=== PATIENT | female | born 1950 | race Caucasian/White ===

== ENCOUNTER 2017-06-28 19:36 | Inpatient (IN) | payer MEDICARE, OTHER ==
[~2017-06-28] VITALS: Ht 167.6 cm; Wt 100.7 kg
[2017-06-28] MEDS ORDERED: TEMA15CA PO (19:56)
[2017-06-28] MEDS ORDERED: OMEP20TA5 PO (19:56)
--- NOTE | 2017-06-28 21:15 | NUR ---
TRANSFER TO [facility] VIA [facility] WITH NO DISTRESS NOTED
[2017-06-28 22:20] VITALS: BP 144/81
[2017-06-28] MEDS ORDERED: LORAZEPAM 0.5 MG TABLET PO PRN (22:30)
[2017-06-28] MEDS ORDERED: MAGNESIUM HYDROXIDE 30 ML LIQUID UDC PO PRN (22:30)
--- NOTE | 2017-06-28 22:50 | NUR ---
At approx 2115 admit 67 year old female on a 5150 hold r/t DTS. Hold started today at 1259 and will end on 07/01/17 at 1259. Per hold, patient has been taking care of with no support, she also found out that she owes the IRS 19,000.00. She feels that there is nothing left to live for. Per patient, she OD on 14 pills of Temazepam 15mg PO. called 911 and she was taken to [facility] ER. Patient noted A/O x4 and able to ambulate with steady gait. Patient was cooperative with admission. However she was noted depressed. She cried one time during admission process. She stated that she still feels suicidal, but denies having a plan. Odilia Hernandez, Sister, was informed of patient's admission to the unit. Dr. Garcia and Dr Ken were notify of admission. Head to toe assessment, a small bruise noted in right deltoid lateral aspect. per pt. she got a pneumococcal vaccine on 06/27/17. It was also noted a small bump in occipital aspect of head, however, skin is intact; this small bump is due to her falling backward and hitting the back of her head on the floor at home after she OD. Patient denies pain or discomfort at this time. we will continue to monitor.
[2017-06-29] MEDS: MAG HYDROX/AL HYDROX/SIMETH 30 ML LIQUID UDC PO PRN (06:32)
[2017-06-29] MEDS ORDERED: MAG HYDROX/AL HYDROX/SIMETH 30 ML LIQUID UDC ONE (06:43)
[2017-06-29 07:30] VITALS: BP 135/81
[2017-06-29] MEDS: ACETAMINOPHEN 325 MG TABLET PO PRN ×2 (08:23→14:35)
--- NOTE | 2017-06-29 08:25 | NUR ---
STATED HAVING HEADACHE MEDICATED WITH TYLENOL ORDERED AND PATIENT IS RESTING AT THIS TIME.
[2017-06-29 15:59] VITALS: BP 140/79
[2017-06-29] MEDS: ESCITALOPRAM OXALATE 10 MG TABLET PO SCH (17:42)
--- NOTE | 2017-06-29 17:59 | NUR ---
SITTING UP IN HER ROOM IN BED EATING HER DINNER PATIENT WAS ENCOURAGED TO PARTICIPATE IN THE DAY ROOM AND INTERACT WITH THE OTHER PATIENTS AND STATED OKAY BUT NOT NOW.
[2017-06-29 20:06] VITALS: BP 134/74
--- NOTE | 2017-06-29 22:00 | NUR ---
received to care, lying in bed, isolative, but pleasant upon approach. compliant with staff direction, and unit rules. declined PRN medications. as of 2199, she appears to be asleep. no distress noted. will continue to monitor closely.
[2017-06-30] MEDS: ACETAMINOPHEN 325 MG TABLET PO PRN ×2 (00:29→08:23)
[2017-06-30] MEDS: MAG HYDROX/AL HYDROX/SIMETH 30 ML LIQUID UDC PO PRN ×3 (00:29→21:01)
[2017-06-30] MEDS: PANTOPRAZOLE SODIUM 40 MG TABLET.DR PO SCH (06:29)
--- NOTE | 2017-06-30 06:30 | NUR ---
slept 8.5 hours, total.
[2017-06-30 07:31] VITALS: BP 127/69
[2017-06-30] MEDS: ESCITALOPRAM OXALATE 10 MG TABLET PO SCH (08:23)
--- NOTE | 2017-06-30 08:30 | NUR ---
Alert, oriented x 3, pleasant. Compliant with taking medication and able to eat beakfast. complains of headache, Tylenol po given.
--- NOTE | 2017-06-30 08:40 | NUR ---
Initial discharge instructions: Pt resides at home with her [[address],[place], [place],[address];[phone]].Per pt,she would like to return home upon discharge.REGINA called pt's sister,Pat [phone] but no answer at this time.REGINA will speak with pt,family,and MD regarding appropriate discharge.REGINA will form a safe and proper discharge.
--- NOTE | 2017-06-30 13:48 | NUR ---
Complaining of stomach upset after lunch. Mylanta po given.
[2017-06-30 16:00] VITALS: BP 137/80
--- NOTE | 2017-06-30 18:52 | NUR ---
Denies suicidal ideation. Calm and cooperative
[2017-06-30 20:17] VITALS: BP 146/80
[2017-06-30] MEDS: ZOLPIDEM 5 MG TABLET PO PRN (21:01)
--- NOTE | 2017-06-30 22:00 | NUR ---
received to care, lying in bed, isolative, but pleasant upon approach. remains isolative, but pleasant upon approach. at 2100, PRN ambien was given for insomnia, and PRN mylanta was given for GI upset. as of 2199, she appears to be asleep. no distress noted. will continue to monitor closely.
--- NOTE | 2017-07-01 06:00 | NUR ---
slept 8.0 hours, total.
[2017-07-01] MEDS: PANTOPRAZOLE SODIUM 40 MG TABLET.DR PO SCH (06:28)
[2017-07-01 07:30] VITALS: BP 158/80
[2017-07-01] MEDS: ESCITALOPRAM OXALATE 10 MG TABLET PO SCH (07:56)
[2017-07-01 15:00] VITALS: BP 114/83
[2017-07-01 19:39] VITALS: BP 162/86
[2017-07-01] MEDS: MAG HYDROX/AL HYDROX/SIMETH 30 ML LIQUID UDC PO PRN (20:32)
--- NOTE | 2017-07-01 22:00 | NUR ---
received to care, lying in bed, isolative, but pleasant upon approach. at bedtime, PRN mylanta was given for GI upset. as of 2200, she appears to be asleep. no distress noted. will continue to monitor closely.
[2017-07-02] MEDS: ACETAMINOPHEN 325 MG TABLET PO PRN ×3 (02:41→20:45)
--- NOTE | 2017-07-02 02:41 | NUR ---
PRN tylenol given for headache.
--- NOTE | 2017-07-02 03:10 | NUR ---
appears to be asleep.no dsitress noted.
--- NOTE | 2017-07-02 06:00 | NUR ---
slept 8.0 hours, total. continues to sleep. no distress noted. will continue to monitor closely.
[2017-07-02] MEDS: PANTOPRAZOLE SODIUM 40 MG TABLET.DR PO SCH (06:25)
[2017-07-02 07:30] VITALS: BP 135/77
[2017-07-02] MEDS: ESCITALOPRAM OXALATE 10 MG TABLET PO SCH (09:17)
--- NOTE | 2017-07-02 09:20 | NUR ---
PT IN ROOM, ISOLATIVE AND GUARDED, PT TOOK AM MED
--- NOTE | 2017-07-02 10:24 | NUR ---
GAVE TYLENOL 2 TABS, PT C/O PAIN, WILL MONITOR.
[2017-07-02 15:00] VITALS: BP 119/91
--- NOTE | 2017-07-02 17:56 | NUR ---
PT REMAINS IN ROOM ISOLATIVE AND GUARDED, NO DISTRESS.
[2017-07-02 20:32] VITALS: BP 137/52
[2017-07-02] MEDS: ZOLPIDEM 5 MG TABLET PO PRN (20:45)
[2017-07-03] MEDS: PANTOPRAZOLE SODIUM 40 MG TABLET.DR PO SCH (06:19)
[2017-07-03 07:30] VITALS: BP 143/73
[2017-07-03] MEDS: ESCITALOPRAM OXALATE 10 MG TABLET PO SCH (08:48)
[2017-07-03 15:21] VITALS: BP 136/77
[2017-07-03] MEDS: MAG HYDROX/AL HYDROX/SIMETH 30 ML LIQUID UDC PO PRN (16:57)
[2017-07-03 20:15] VITALS: BP 139/71
[2017-07-03] MEDS: ZOLPIDEM 5 MG TABLET PO PRN (21:07)
[2017-07-04] MEDS: PANTOPRAZOLE SODIUM 40 MG TABLET.DR PO SCH (06:37)
[2017-07-04 07:30] VITALS: BP 156/61
[2017-07-04] MEDS: ESCITALOPRAM OXALATE 10 MG TABLET PO SCH (08:31)
[2017-07-04] MEDS: ACETAMINOPHEN 325 MG TABLET PO PRN (08:36)
[2017-07-04 15:50] VITALS: BP 116/65
[2017-07-04 20:13] VITALS: BP 123/60
[2017-07-04] MEDS ORDERED: ESCITALOPRAM OXALATE 10 MG TABLET PO SCH (21:00)
--- NOTE | 2017-07-04 22:00 | NUR ---
received to care, lying in bed, isolative, but pleasant upon approach. interacts well with her room mate, and program staff. denies SI, or the desire to harm self. as of 0, she remains awake. no distress noted. will continue to monitor closely.
[2017-07-04] MEDS: ZOLPIDEM 5 MG TABLET PO PRN (22:29)
--- NOTE | 2017-07-04 22:29 | NUR ---
PRN ambien, given, for insomnia.
--- NOTE | 2017-07-04 23:00 | NUR ---
appears to be asleep. no distress noted.
--- NOTE | 2017-07-05 06:00 | NUR ---
slept 8.0 hours, total.
[2017-07-05] MEDS: PANTOPRAZOLE SODIUM 40 MG TABLET.DR PO SCH (06:30)
[2017-07-05 07:39] VITALS: BP 124/70
--- NOTE | 2017-07-05 11:36 | NUR ---
DC Note: Patient will be discharged back home [[address], [place], [address]; [phone]] via private transportation at 2:00 pm. Patient's sister, Any Hernandez will be picking her up. Any is aware and agreeable with discharge plans. Patient is aware and agreeable with discharge plans. Patient will follow-up with (Dragline Operator Helper) [[address], [place] [address]; ]. Patient was referred to Psychiatrists, , , and [phone]. Patient was provided with a brief substance abuse intervention and referred to [facility] , [facility] , and [facility] .
--- NOTE | 2017-07-05 14:00 | NUR ---
GPS: Nursing Notes: Discharge Notes: Patient is awake and responding to her name, A/Ox4, compliant with her medications, cooperative with nursing care, denies any SI/HI, denies any AH/VH, denies any pain or discomfort, denies any SOB, discharge home with her at [address] [place], [place] [id number] , instructions and prescription given to her sister Any Hernandez , transported home via private vehicle, accompanied by her sister, took all her belonging with her. Patient is aware and agreeable with discharge plans. Patient will follow-up with (Hospital Education Coordinator) [[address] [facility] [address], [place] [address]; ]. Patient was referred to Psychiatrists, , , and [phone]. Patient was provided with a brief substance abuse intervention and referred to [facility] , [facility] , and [facility] .
== END 2017-07-05 14:00 | disposition home or self-care (01) | DRG 885 ==
LOC: ER 19:41 → GPS 20:50
PROVIDERS: ADMIT Psychiatry & Neurology Psychiatry
DX: F32.2 Major depressive disorder, single episode, severe without psychotic features (principal); E78.5 Hyperlipidemia, unspecified; E66.9 Obesity, unspecified; K21.9 Gastro-esophageal reflux disease without esophagitis; T42.4X2D Poisoning by benzodiazepines, intentional self-harm, subsequent encounter; Z79.899 Other long term (current) drug therapy; Z68.38 Body mass index [BMI] 38.0-38.9, adult; Z87.81 Personal history of (healed) traumatic fracture
CPT/HCPCS: 36415; A4663